=== PATIENT | male | born 1970 | race Caucasian/White ===

== ENCOUNTER 2018-07-06 10:58 | Emergency (ER) | payer BC ==
--- NOTE | 2018-07-06 11:27 | Emergency Department Record ---
History of Present Illness - General Chief Complaint: Back Pain/Injury Stated Complaint: RIGHT HIP PAIN/LOWER BACK. Time Seen by Provider: 07/06/18 11:17 Source: Patient Mode of Arrival: Ambulatory Limitations: No limitations - History of Present Illness Initial Comments: 48 yo male back pain. The pain started about 2 weeks ago. He denies any injury. His did injury the back last fall and has had some pain since then. He fell off a ladder changing a light bulb. No weakness or numbness. No drop foot. No fevers. He has pain in the lumbar area that radiates down the lateral leg. The pain radiates to the foot at times. No changes in bowel or bladder function. No numbness. No PCP for 16 years. MD Complaint: Back pain Onset/Timin -: Week(s) Similar Symptoms Previously: Yes Place: Home Radiation: Right leg Severity: Moderate Quality: Burning, Sharp, Stabbing Consistency: Constant Improves With: Immobilization Worsens With: Movement, Walking Context: Unknown Associated Symptoms: Difficulty walking Treatments Prior to Arrival: NSAIDS, Other medications, Other - Related Data Home Medications Medication Instructions Recorded Confirmed Last Taken Ibuprofen 600 mg PO Q6H 07/06/18 07/06/18 07/06/18 Methocarbamol [Robaxin] 1 tab PO TID 07/06/18 07/06/18 07/06/18 Prednisone [Prednisone 20Mg] 40 mg PO DAILY 07/06/18 07/06/18 07/06/18 Allergies Allergy/AdvReac Type Severity Reaction Status Date / Time No Known Drug Allergies Allergy Verified 07/06/18 11:11 Travel Screening - Travel/Exposure Within Last 30 Days Have you traveled within the last 30 days?: No - Travel/Exposure Within Last Year Have you traveled outside the [place] in the last year?: No - Additonal Travel Details Have you been exposed to anyone with a communicable illness?: No - Travel Symptoms Symptom Screening: None Review of Systems Constitutional: Denies: Chills, Fever, Malaise, Weakness Eyes: Denies: Eye discharge ENT: Denies: Congestion, Throat pain Respiratory: Denies: Cough Cardiovascular: Denies: Chest pain, Syncope Endocrine: Denies: Fatigue Gastrointestinal: Denies: Abdominal pain, Diarrhea, Nausea, Vomiting Genitourinary: Denies: Dysuria, Frequency, Hematuria Musculoskeletal: Reports: As per HPI, Back pain, Myalgia. Denies: Arthralgia, Joint swelling, Neck pain Skin: Denies: Bruising, Change in color, Rash Neurological: Denies: Abnormal gait, Headache, Numbness, Paresthesias, Seizure, Tingling, Tremors, Weakness Psychiatric: Denies: Anxiety Hematological/Lymphatic: Denies: Blood Clots, Easy bleeding, Easy bruising, Swollen glands Past Medical History - SOCIAL HISTORY Smoking Status: Current every day smoker Alcohol Use: Rare Drug Use: Rare Drug Use Detail:: Marijuana - RESPIRATORY Hx Respiratory Disorders: No - CARDIOVASCULAR Hx Cardio Disorders: No - NEURO Hx Neuro Disorders: No - GI Hx Hiatal Hernia: Yes (as child) Hx Ulcer: Yes - Hx Genitourinary Disorders: No - ENDOCRINE Hx Endocrine Disorders: No - MUSCULOSKELETAL Hx Musculoskeletal Disorders: No - PSYCH Hx Psych Problems: No - HEMATOLOGY/ONCOLOGY Hx Hematology/Oncology Disorders: No Family Medical History Any Significant Family History?: No Physical Exam - General General Appearance: Alert, Oriented x3, Cooperative, No acute distress Limitations: No limitations - Head Head exam: Atraumatic, Normal inspection - Eye Eye exam: Normal appearance. negative: Conjunctival injection - ENT ENT exam: Normal exam, Mucous membranes moist Ear exam: Normal external inspection Nasal Exam: Normal inspection Mouth exam: Normal external inspection - Neck Neck exam: Normal inspection - Respiratory Respiratory exam: Normal lung sounds bilaterally. negative: Respiratory distress - Cardiovascular Cardiovascular Exam: Regular rate, Normal rhythm, Normal heart sounds - GI/Abdominal GI/Abdominal exam: Soft. negative: Tenderness - Rectal Rectal exam: Deferred - exam: Deferred - Extremities Extremities exam: Normal inspection, Full ROM, Normal capillary refill, Tenderness. negative: Calf tenderness, Joint swelling, Pedal edema Image of Full Body: 1 - tender across the lumbar with most tenderness on the right, tender in the buttocks area, normal inspection, tender lateral upper leg, no edema, no pain with log roll of the leg, reproduced pain with interal rotation of the hip in the back, EHL intact, foot flexion and foot extension intact, sensation intact, Quadracepts intact, patella intact. - Back Back exam: Reports: Muscle spasm, Paraspinal tenderness, Tenderness, Vertebral tenderness. Denies: CVA tenderness (R), CVA tenderness (L) - Neurological Neurological exam: Alert, Oriented X3, Reflexes normal (+2 patellar). negative : Motor sensory deficit - Psychiatric Psychiatric exam: Normal affect, Normal mood. negative: Agitated, Anxious - Skin Skin exam: Dry, Intact, Normal color, Warm. negative: Cyanosis, Diaphoretic, Erythema Course Vital Signs 07/06/18 11:01 Temperature 98.0 F Pulse Rate 93 H Respiratory 20 Rate Blood Pressure 127/103 Pulse Ox 95 - Reevaluation(s) Reevaluation #1: The vitals were reviewed No significant abnormalities 07/06/18 11:18 No other records on EMR 07/06/18 11:33 The patient declined pain medication in the ED at this time 07/06/18 12:11 Degenerative changes noted in the lumbar spine with spurring. Mild L5 on S1 subluxation with possible spondylolyisis at that level The neuro examination is intact. We discussed the results, the symptoms, need for a PCP and possible outpatient follow up MRI if not improving We discussed to seek medical attention immediately if worse, numb, weak, changes in bowel or bladder function 07/06/18 12:28 Copy of the XR was provided at [place] 07/06/18 12:54 Disposition Disposition: Discharge Clinical Impression: Lumbar pain, Sciatica Disposition: Home, Self-Care Condition: (1) Good Instructions: Sciatica (ED), Low Back Strain (ED) Additional Instructions: Call to establish a new family doctor Be seen or return if worse, swelling, weakness, numbness or concerns Avoid prolong standing or heavy lifting. Referrals: SONIDO GARG [MEDICAL DOCTOR] - Forms: Patient Portal Access Time of Disposition: 12:13 Quality - Quality Measures Quality Measures: N/A - Blood Pressure Screening Does Patient Have Any of the Following: No Blood Pressure Classification: Pre-Hypertensive BP Reading Systolic Measurement: 113 Diastolic Measurement: 88 Screening for High Blood Pressure: < Pre-Hypertensive BP, F/U Documented > [ [id number]] Pre-Hypertensive Follow-up Interventions: Referral to alternative/primary care provider.
[2018-07-06] MEDS ORDERED: HYDROCODONE/APAP 7.5/325MG TABLET PO ONE (12:28)
--- NOTE | 2018-07-09 13:10 | RADIOLOGY REPORT ---
EXAM: LUMBAR SPINE HISTORY: RIGHT SIDED LOWER BACK PAIN FOR TWO WEEKS. NO HISTORY OF TRAUMA PROVIDED. TECHNIQUE: Five views of the lumbar spine were obtained. Comparison: No prior lumbar spine series. FINDINGS: Mild narrowing is seen particularly in the upper lumbar and visualized lower thoracic spine. There is mild narrowing of the lumbosacral interspace. There is also slight anterior subluxation of L5 on S1. No definite spondylolysis of L5 seen on the oblique views, although on the lateral view there is a suggestion of spondylolysis of L5. If clinically warranted, this could be more sensitively evaluated with a follow-up lumbar CT scan. Elsewhere the lumbar spine appears negative. IMPRESSION: 1. SOME SPURRING IN THE VISUALIZED THORACIC AND LUMBAR SPINE. 2. MILD NARROWING OF THE LUMBOSACRAL INTERSPACE WITH MILD ANTERIOR SUBLUXATION OF L5 ON S1. QUESTIONABLE SPONDYLOLYSIS OF L5. JOB NUMBER: [id number] [facility]
--- NOTE | 2018-07-09 13:12 | RADIOLOGY REPORT ---
EXAM: RIGHT HIP WITH AP PELVIS HISTORY: RIGHT SIDED LOWER BACK PAIN EXTENDING DOWN THE RIGHT LEG FOR TWO WEEKS. NO HISTORY OF INJURY. TECHNIQUE: AP view of the pelvis and AP and lateral views of the right hip were obtained. Comparison: No prior pelvis or right hip series. FINDINGS: The right hip appears intact. No fracture or dislocation seen. No destructive lesion evident. The hip joint appears maintained and appears similar in thickness to that seen on the left. IMPRESSION: THE RIGHT HIP APPEARS NEGATIVE. JOB NUMBER: [id number] [facility]
== END 2018-07-06 12:54 | disposition home or self-care (01) ==
LOC: ER 10:58
DX: M54.40 Lumbago with sciatica, unspecified side (principal); F17.210 Nicotine dependence, cigarettes, uncomplicated
CPT/HCPCS: 72110; 99283